=== PATIENT | male | born 2000 | race Two or more races ===

== ENCOUNTER 2022-06-19 13:26 | Outpatient (CLI) | payer OTHER | END 2022-06-19 13:31 | disposition home or self-care (01) | LOC: PPH VACUNA 13:26 | PROVIDERS: ATTEND Emergency Medicine Pediatric Emergency Medicine | DX: Z23 Encounter for immunization (principal) ==

== ENCOUNTER 2023-01-02 15:49 | Emergency (ER) | payer OTHER ==
[~2023-01-02] VITALS: Ht 165.1 cm; Wt 103.4 kg
== END 2023-01-02 17:26 | disposition home or self-care (01) ==
LOC: EMR PED 15:49
DX: B34.9 Viral infection, unspecified (principal); Z20.822 Contact with and (suspected) exposure to COVID-19

== ENCOUNTER 2023-12-22 21:58 | Emergency (ER) | payer OTHER ==
[~2023-12-22] VITALS: Ht 165.1 cm; Wt 113.4 kg
[2023-12-22] MEDS ORDERED: KETOROLAC TROMETHAMINE 30 MG VIAL IV ONE (22:45)
[2023-12-22 23:40] LABS: HEMATOCRIT 39.8 % (39.0-48.0); HEMOGLOBIN 13.8 g/dL (13-16.00); MEAN CELL VOLUME 80.8 fL (80.0-100.00); MEAN CORPUSCULAR HEMOGLOBIN 28.1 pg (27.00-32.0); MEAN CORPUSCULAR HGB CONC 34.8 g/dl (32.0-36.0); PLATELET COUNT 354 K/uL (150-450); RED BLOOD COUNT 4.92 M/uL (4.00-6.00); RED CELL DISTRIBUTION WIDTH 15.1 % (11.5-14.5)
[2023-12-22 23:54] LABS: CALCIUM 8.9 mg/dL (8.5-10.1); CREATININE SERUM 1.29 mg/dL (0.70-1.30); GFR 70.31; POTASSIUM 3.24 mEq/L (3.5-5.1)
[2023-12-23] LABS: PH,URINE 5.5 (5.0-8.0); URINE APPEARANCE Clear; URINE BILIRRUBIN Negative (NEGATIVE); URINE BLOOD Negative; URINE COLOR Yellow; URINE GLUCOSE Negative (NEGATIVE); URINE LEUKOCYTE Negative; URINE NITRATE Negative; URINE PROTEIN Negative (NEGATIVE); URINE UROBILINOGEN 0.2 E.U./dl; URINE WBC 2.7 uL (0.0-23.2)
[2023-12-23 00:02] LABS: URINE BACTERIA 2.5 uL (0.0-1933); URINE EPITHELIAL CELLS 0.3 uL (0.0-38.8); URINE RBC 0.5 uL (0.0-20.8)
[2023-12-23] MEDS ORDERED: CIPRO500 MG PO (02:20)
[2023-12-23] MEDS ORDERED: KETO10TA2 PO (02:20)
== END 2023-12-23 02:27 | disposition home or self-care (01) ==
LOC: ER 21:58
PROVIDERS: Emergency Medicine
DX: R10.31 Right lower quadrant pain (principal)